=== PATIENT | female | born 2000 | race Two or more races ===

== ENCOUNTER 2022-03-28 12:44 | Emergency (ER) | payer BC ==
[~2022-03-28] VITALS: Ht 160 cm; Wt 45.4 kg
[2022-03-28] MEDS ORDERED: IV NS 0.9% 1,000 ML BAG IV ONE (13:30)
--- NOTE | 2022-03-28 15:00 | NUR ---
Anxious. Reassured-emcouraged relaxation techniques. VS
[2022-03-28 16:13] VITALS: BP 110/60
--- NOTE | 2022-03-28 16:19 | NUR ---
Pt states "feeling better- want to go home" MD aware w/orders for discharge Patient discharged to home in stable condition. Written and verbal after care instructions given. Patient verbalizes understanding of instruction.
== END 2022-03-28 16:19 | disposition home or self-care (01) ==
LOC: ER 12:51
DX: F14.129 Cocaine abuse with intoxication, unspecified (principal); F19.10 Other psychoactive substance abuse, uncomplicated; R41.82 Altered mental status, unspecified; Z88.0 Allergy status to penicillin; Z60.2 Problems related to living alone
CPT/HCPCS: 36415; 80307; 80320; 99283; J7030; G0480